=== PATIENT | male | born 1985 | race African-American/Black ===

== ENCOUNTER 2018-07-26 20:38 | Emergency (ER) | payer MEDICARE, OTHER ==
[~2018-07-26] VITALS: Ht 170.2 cm; Wt 59.0 kg
[2018-07-26 21:32] VITALS: BP 107/65
== END 2018-07-26 21:54 | disposition home or self-care (01) ==
LOC: ED 21:11
DX: K62.9 Disease of anus and rectum, unspecified (principal); Z00.01 Encounter for general adult medical examination with abnormal findings
CPT/HCPCS: 74021; 99284